=== PATIENT | male | born 1970 | race Two or more races ===

== ENCOUNTER 2016-12-22 21:01 | Emergency (ER) | payer SELFPAY ==
[~2016-12-22] VITALS: Ht 167.6 cm; Wt 63.5 kg
[~2016-12-22 21:01] MED LIST: UNOBMED
[2016-12-22] MEDS ORDERED: MULTIVITAMINS1 EAC2 ORAL (21:29)
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
[2016-12-22] MEDS ORDERED: Norco 5mg/325mg tab ORAL ONE (21:45)
[2016-12-22] MEDS ORDERED: TdaP Vaccine 0.5ml Syr IM ONE (21:45)
[2016-12-22] MEDS ORDERED: Morphine Sulfate 4mg/ml Inj IM ONE (22:45)
[2016-12-22 23:22] VITALS: BP 124/79
[2016-12-22] MEDS ORDERED: HYDROCODON-ACE1 EA15 ORAL (23:39)
[2016-12-22 23:56] VITALS: BP 124/79
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
== END 2016-12-22 23:56 | disposition home or self-care (01) ==
LOC: EMR 21:42
DX: S01.111A Laceration without foreign body of right eyelid and periocular area, initial encounter (principal); S06.9X1A Unspecified intracranial injury with loss of consciousness of 30 minutes or less, initial encounter; S02.80XA Fracture of other specified skull and facial bones, unspecified side, initial encounter for closed fracture; S05.11XA Contusion of eyeball and orbital tissues, right eye, initial encounter; Z23 Encounter for immunization; Y09 Assault by unspecified means; Y92.9 Unspecified place or not applicable; Y99.8 Other external cause status
CPT/HCPCS: 12014; 70450; 70486; 90471; 90715; 96372; 99284; J2270